=== PATIENT | male | born 1985 | race Caucasian/White ===

== ENCOUNTER 2024-03-07 23:19 | Emergency (ER) | payer MEDICAID ==
[~2024-03-07] VITALS: Ht 172.7 cm; Wt 89.0 kg
--- NOTE | 2024-03-08 00:20 | NUR ---
moved pt from er #18 to er #07
[2024-03-08 05:13] VITALS: BP 136/84; PULSE 74; RESP 17; TEMP 97.9; O2SAT 99
[2024-03-19] MEDS ORDERED: POTA-192 PO (09:03)
== END 2024-03-08 05:38 | disposition home or self-care (01) ==
LOC: ER 23:20
DX: F15.10 Other stimulant abuse, uncomplicated (principal); R79.89 Other specified abnormal findings of blood chemistry
CPT/HCPCS: 82948; 99285

== ENCOUNTER 2024-04-01 14:37 | Emergency (ER) | payer MEDICAID ==
[~2024-04-01] VITALS: Ht 162.6 cm; Wt 81.8 kg
[~2024-04-01 14:37] MED LIST: PERM60CR19 TP; POTA-192 PO
[2024-04-01 15:34] LABS: ALBUMIN 3.8 G/DL (3.4-5.0); ANION GAP 9 (8-16); BLOOD UREA NITROGEN 10 MG/DL (7-18); BUN/CREATININE RATIO 10.5 (10.0-20.0); CALCIUM 9.3 MG/DL (8.5-10.1); CHLORIDE 109 MMOL/L (99-107); CREATININE 0.95 MG/DL (0.60-1.10); GLUCOSE 80 MG/DL (70-104); POTASSIUM 3.3 MMOL/L (3.5-5.1); SODIUM 145 MMOL/L (135-145); TOTAL CARBON DIOXIDE 26.7 MMOL/L (24-32); eCRCL 90 ML/MIN; eGFR 90 ML/MIN
[2024-04-01 15:35] LABS: BASOPHILS # (AUTO) 0.1 X10'3 (0-0.2); BASOPHILS % (AUTO) 0.7 % (0-1); EOSINOPHILS # (AUTO) 0.1 X10'3 (0-0.9); EOSINOPHILS % (AUTO) 1.4 % (0-6); HEMOGLOBIN 15.5 g/dl (14.0-17.9); LYMPHOCYTES # (AUTO) 1.4 X10'3 (1.1-4.8); LYMPHOCYTES % (AUTO) 16.6 % (21-51); MEAN CORPUSCULAR HEMOGLOBIN 30.2 PG (27.0-31.0); MEAN CORPUSCULAR HGB CONC 33.7 g/dL (33.0-36.5); MEAN CORPUSCULAR VOLUME 89.8 FL (78-98); MEAN PLATELET VOLUME 8.3 FL (7.4-10.4); MONOCYTES # (AUTO) 0.9 X10'3 (0-0.9); MONOCYTES % (AUTO) 10.3 % (2-12); NEUTROPHILS # (AUTO) 5.9 X10'3 (1.8-7.7); PLATELET COUNT 247 X10'3 (140-440); RED BLOOD COUNT 5.12 X10'6 (4.70-6.10); RED CELL DISTRIBUTION WIDTH 14.1 % (11.5-14.5); WHITE BLOOD COUNT 8.3 X10'3 (4.5-11.0)
[2024-04-01] MEDS ORDERED: ONDA-243 PO (18:46)
[2024-04-01 18:55] VITALS: BP 158/100; PULSE 100; RESP 18; TEMP 98.1; O2SAT 99
== END 2024-04-01 18:58 | disposition home or self-care (01) ==
LOC: ER 14:37
DX: T40.601A Poisoning by unspecified narcotics, accidental (unintentional), initial encounter (principal); Z79.899 Other long term (current) drug therapy; Y92.89 Other specified places as the place of occurrence of the external cause
CPT/HCPCS: 36415; 80048; 85025; 93005; 99285; A4620

== ENCOUNTER 2024-11-16 21:42 | Emergency (ER) | payer MEDICAID ==
[~2024-11-16] VITALS: Ht 172.7 cm; Wt 88.5 kg
[~2024-11-16 21:42] MED LIST changes: +ONDA-243 PO; -PERM60CR19 TP; +PERM60CR27 TP; -POTA-192 PO
[2024-11-16 21:49] VITALS: BP 166/106; PULSE 110; RESP 18; O2SAT 98
--- NOTE | 2024-11-16 23:01 | Physician Documentation ---
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 Patient reports that he feels otherwise well reporting no physical symptoms including no fever, shortness of breath, or chest pain. Patient reports history of hypertension which he does not take medication for. Tetanus within 5 years?: No Medication Reconciliation Allergies: Coded Allergies: No Known Allergies (Unverified , 03/25/24) Scheduled Permethrin 5% Cream* (Elimite 5% Cream*), 1 APPLIC TP ONCE Scheduled PRN ONDANSETRON ODT 4mg tablet (Ondansetron Odt), 1 TAB PO Q6H PRN PRN for nausea/vomiting Past Medical History Past Medical History: No Pertinent History Past Surgical History: no surgical history Alcohol Use: None Lives with: Alone Review of Systems ROS As stated above in the HPI, otherwise all systems are reviewed and negative. Physical Exam Vital Signs: Temperature: 97.9, Source: Temporal, Heart Rate: 110, Respiratory Rate: 18, BP: 166/106, Pulse Oximetry: 98, Weight: 88.500 Physical Exam VITALS: Reviewed and as above. GENERAL: Alert, nontoxic appearing, no apparent distress. HEENT: Normocephalic, atraumatic, PERRL, EOMI, moist mucosa, no erythema, uvula midline RESPIRATORY: Lungs clear, normal breath sounds, no respiratory distress. Please work of breathing and speaking full clear sentences CV: Regular rate, rhythm, no murmur GI: Soft, non-tender, bowels sounds present, no rebound, guarding, or rigidity BACK: No CVA tenderness, no midline tenderness MUSCULOSKELETAL No deformities, no edema SKIN: Warm and dry NEURO: Oriented x4 PSYCH: Normal mood and affect, no agitation Progress Results/Orders Results/Orders Vital Signs 11/16/24 11/16/24 21:49 23:07 Temp 97.9 97.9 Pulse 110 Resp 18 B/P (MAP) 166/106 Pulse Ox 98 Medical Decision Making Findings This 39-year-old male presented requesting medical clearance to enter a rehab program for methamphetamine and opioid abuse, patient reported feeling otherwise well and reported no physical symptoms or concerns. This patient reports no h istory of heavy alcohol use I have low suspicion for risk of alcohol withdrawal. Physical exam was benign and vital signs are stable, patient is appropriate for outpatient follow up and medically cleared to enter rehab program. Tachycardia on triage is attributed to patient's recent methamphetamine use. Patient provided return to care precautions. Differential Dx:Considerations: Include: Intoxication-Other drug, Personality disorder, Substance abuse disorder, Alcohol withdrawl syndrom Departure Time of Disposition: 23:01 Disposition: 01 HOME / SELF CARE / HOMELESS Impression: Primary Impression: General medical exam Condition: Improved Discharge Instructions: Medical Screening Exam Additional Instructions: You are medically cleared to enter your rehabilitation program. Please follow up with your primary care provider in the next few days. Please return to the emergency department for any new or worsening concerning symptoms. Referrals: NO PRIMARY CARE PROVIDER (PCP) Education Educated: Patient Educated regarding: diagnosis, treatment, prognosis, need for follow up Signature Scribe Signature: No scribe Attestation: The note accurately reflects work and decisions made by me.BEST Wells 11/17/24 01:11 JENNIFER [facility] November 16, 2024 23:01
[2024-11-16 23:07] VITALS: TEMP 97.9
== END 2024-11-16 23:09 | disposition home or self-care (01) ==
LOC: ER 21:43
DX: Z02.9 Encounter for administrative examinations, unspecified (principal); I10 Essential (primary) hypertension; Z79.899 Other long term (current) drug therapy; Z60.2 Problems related to living alone
CPT/HCPCS: 99281